=== PATIENT | female | born 1995 | race Caucasian/White ===

== ENCOUNTER 2019-12-11 12:18 | Emergency (ER) | payer MEDICAID ==
[2019-12-11 12:35] VITALS: BP 105/96; PULSE 87
--- NOTE | 2019-12-11 13:16 | EDM.PDOC ---
ED HPI GENERAL MEDICAL PROBLEM - General Chief Complaint: Abdominal Pain Stated Complaint: BACK PAIN SWOLLEN STOMACH Time Seen by Provider: 12/11/19 13:16 Source of Information: Reports: Patient, RN, RN Notes Reviewed History Limitations: Reports: No Limitations - History of Present Illness INITIAL COMMENTS - FREE TEXT/NARRATIVE: Patient presents to ER with complaint of abdominal pain that wraps around into the back. Patient states this began about 2-3 o'clock yesterday. Patient states she has some nausea from time to time. States the pain is sharp in nature, rates the pain 8/10. Patient denies any frequency, urgency burning with urination. States menstrual cycle is not regular as she has an IUD. Admits to still having her appendix and gallbladder. Last ate yesterday and had a hamburger. Patient denies fever chills, denies diarrhea. States last bowel movement was 2 days ago and was normal for her. Patient states when she gets up to walk she does have some numbness and tingling and sharp pain to the left buttock and down the leg as well. Patient denies any recent injury or lifting heavy objects. States she is unable to lift her son right now due to the pain. 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 ED EXAM, GI/ABD - Physical Exam Exam: See Below Exam Limited By: No Limitations General Appearance: Alert, WD/WN, Moderate Distress Eyes: Bilateral: Normal Appearance, EOMI Ears: Normal External Exam, Hearing Grossly Normal Nose: Normal Inspection Throat/Mouth: Normal Inspection, Normal Voice, No Airway Compromise Head: Atraumatic, Normocephalic Neck: Normal Inspection, Supple, Non-Tender, Full Range of Motion Respiratory/Chest: No Respiratory Distress, Lungs Clear, Normal Breath Sounds, No Accessory Muscle Use, Chest Non-Tender Cardiovascular: Normal Peripheral Pulses, Regular Rate, Rhythm, No Edema, No Gallop, No JVD, No Murmur, No Rub GI/Abdominal Exam: Normal Bowel Sounds, Soft, Tender (diffuse) (Female) Exam: Deferred Rectal (Female) Exam: Deferred Back Exam: Normal Inspection, Decreased Range of Motion, Paraspinal Tenderness (left), Vertebral Tenderness (lumbar) Extremities: Normal Inspection, Non-Tender, No Pedal Edema, Normal Capillary Refill, Limited Range of Motion Neurological: Alert, Oriented, CN II-XII Intact, Normal Cognition, Normal Reflexes, No Motor/Sensory Deficits Psychiatric: Normal Affect, Normal Mood Skin Exam: Warm, Dry, Intact, Normal Color, No Rash Lymphatic: No Adenopathy Course - Vital Signs Last Recorded V/S: Last Vital Signs Temp 98 F 12/11/19 12:30 Pulse 87 12/11/19 12:30 Resp 18 12/11/19 12:30 BP 105/96 H 12/11/19 12:30 Pulse Ox 98 12/11/19 12:30 - Orders/Labs/Meds Orders: Active Orders 24 hr Category Date Time Status CULTURE URINE [RM] Stat Lab 12/11/19 13:25 Received Labs: Laboratory Tests 12/11/19 12/11/19 12/11/19 Range/Units 13:25 13:25 13:52 WBC 8.8 (5.0-10.0) 10^3/uL RBC 4.34 (4.2-5.4) 10^6/uL Hgb 13.4 D (12.0-16.0) g/dL Hct 40.4 (37.0-47.0) % MCV 93.1 D (80-100) fL MCH 30.9 (27.0-34.0) pg MCHC 33.2 (33.0-35.0) g/dL Plt Count 193 (150-450) 10^3/uL Neut % (Auto) 59.6 (42.2-75.2) % Lymph % (Auto) 28.3 (20.5-50.1) % [place] % (Auto) 6.4 (2-8) % Eos % (Auto) 5.5 H (1.0-3.0) % Baso % (Auto) 0.2 (0.0-1.0) % Sodium (136-145) mmol/L Potassium (3.5-5.1) mmol/L Chloride (98-107) mmol/L Carbon Dioxide (21-32) mmol/L Anion Gap (7-13) mEq/L BUN (7-18) mg/dL Creatinine (0.55-1.02) mg/dL Est Cr Clr Drug Dosing mL/min Estimated GFR (MDRD) BUN/Creatinine Ratio (No establ ref range) Glucose (74-99) mg/dL Calcium (8.5-10.1) mg/dL Total Bilirubin (0.2-1.0) mg/dL AST (15-37) U/L ALT (14-59) U/L Alkaline Phosphatase (46-116) U/L Total Protein (6.4-8.2) g/dL Albumin (3.4-5.0) g/dL Globulin Albumin/Globulin Ratio Amylase (25-115) U/L Lipase (73-393) U/L Urine Color Dark yellow (YELLOW) Urine Appearance Cloudy (CLEAR) Urine pH 7.5 (5.0-9.0) Ur Specific [place] 1.025 (1.005-1.030) Urine Protein 30 H (NEGATIVE) Urine Glucose (UA) Negative (NEGATIVE) Urine Ketones Trace H (NEGATIVE) Urine Occult Blood Trace-lysed H (NEGATIVE) Urine Nitrite Negative (NEGATIVE) Urine Bilirubin Negative (NEGATIVE) Urine Urobilinogen 2.0 H (0.2-1.0) mg/dL Ur Leukocyte Esterase Large H (NEGATIVE) Urine RBC 10-20 H /HPF Urine WBC Semi-packed H (0-5/HPF) /HPF Ur Epithelial Cells Moderate H (NOT SEEN) /HPF Urine Bacteria Many H (0-FEW/HPF) /HPF Urine HCG, Qual Negative 07/26/20 Range/Units 13:52 WBC (5.0-10.0) 10^3/uL RBC (4.2-5.4) 10^6/uL Hgb (12.0-16.0) g/dL Hct (37.0-47.0) % MCV (80-100) fL MCH (27.0-34.0) pg MCHC (33.0-35.0) g/dL Plt Count (150-450) 10^3/uL Neut % (Auto) (42.2-75.2) % Lymph % (Auto) (20.5-50.1) % [place] % (Auto) (2-8) % Eos % (Auto) (1.0-3.0) % Baso % (Auto) (0.0-1.0) % Sodium 138 (136-145) mmol/L Potassium 3.7 (3.5-5.1) mmol/L Chloride 101 (98-107) mmol/L Carbon Dioxide 29 (21-32) mmol/L Anion Gap 11.7 (7-13) mEq/L BUN 12 (7-18) mg/dL Creatinine 0.99 (0.55-1.02) mg/dL Est Cr Clr Drug Dosing 69.90 mL/min Estimated GFR (MDRD) > 60 BUN/Creatinine Ratio 12.1 (No establ ref range) Glucose 89 (74-99) mg/dL Calcium 8.2 L (8.5-10.1) mg/dL Total Bilirubin 0.7 (0.2-1.0) mg/dL AST 17 (15-37) U/L ALT 25 (14-59) U/L Alkaline Phosphatase 72 (46-116) U/L Total Protein 7.7 (6.4-8.2) g/dL Albumin 3.6 (3.4-5.0) g/dL Globulin 4.1 Albumin/Globulin Ratio 0.9 Amylase 37 (25-115) U/L Lipase 120 (73-393) U/L Urine Color (YELLOW) Urine Appearance (CLEAR) Urine pH (5.0-9.0) Ur Specific [place] (1.005-1.030) Urine Protein (NEGATIVE) Urine Glucose (UA) (NEGATIVE) Urine Ketones (NEGATIVE) Urine Occult Blood (NEGATIVE) Urine Nitrite (NEGATIVE) Urine Bilirubin (NEGATIVE) Urine Urobilinogen (0.2-1.0) mg/dL Ur Leukocyte Esterase (NEGATIVE) Urine RBC /HPF Urine WBC (0-5/HPF) /HPF Ur Epithelial Cells (NOT SEEN) /HPF Urine Bacteria (0-FEW/HPF) /HPF Urine HCG, Qual Departure - Departure Time of Disposition: 14:26 Disposition: Home, Self-Care 01 Condition: Fair Clinical Impression: UTI (urinary tract infection) Qualifiers: Urinary tract infection type: acute cystitis Hematuria presence: without hematuria Qualified Code(s): N30.00 - Acute cystitis without hematuria Low back pain Qualifiers: Chronicity: acute Back pain laterality: left Sciatica presence: with sciatica Sciatica laterality: sciatica of left side Qualified Code(s): M54.42 - Lumbago with sciatica, left side - Discharge Information *PRESCRIPTION DRUG MONITORING PROGRAM REVIEWED*: No *COPY OF PRESCRIPTION DRUG MONITORING REPORT IN PATIENT LAUREN: No Instructions: Abdominal Pain, Adult, [id number], Antibiotic Medicine, Adult, [id number], Back Injury Prevention, [id number], Urinary Tract Infection, Ad ult, [id number], Back Exercises, [id number] Forms: ED Department Discharge Additional Instructions: Rx Macrobid Drink plenty of water Alternate heat and ice to the lower back Rest May use Tylenol and/or ibuprofen as directed for pain Follow-up with your primary care provider in the clinic if no improvement Sepsis Event Note (ED) - Evaluation Sepsis Screening Result: No Definite Risk - Focused Exam Vital Signs: Vital Signs Temp Pulse Resp BP Pulse Ox 12/11/19 12:30 98 F 87 18 105/96 H 98 - My Orders Last 24 Hours: My Active Orders 12/11/19 13:25 CULTURE URINE [RM] Stat - Assessment/Plan Last 24 Hours: My Active Orders 12/11/19 13:25 CULTURE URINE [RM] Stat
[2019-12-11 14:22] LABS: ANION GAP 11.7 mEq/L (7-13); CHLORIDE,CL 101 mmol/L (98-107); SODIUM,NA 138 mmol/L (136-145)
== END 2019-12-11 14:33 | disposition home or self-care (01) ==
LOC: DL.ED 12:18
DX: N30.00 Acute cystitis without hematuria (principal); M54.42 Lumbago with sciatica, left side; F41.9 Anxiety disorder, unspecified; F32.9 Major depressive disorder, single episode, unspecified; Z79.899 Other long term (current) drug therapy
CPT/HCPCS: 36415; 80053; 81001; 81025; 82150; 83690; 85025; 87086; 87088; 87186; 99283; 99284

== ENCOUNTER 2021-04-05 23:28 | Emergency (ER) | payer MEDICARE, MEDICAID ==
[2021-04-05] MEDS ORDERED: Codeine/guaiFENesin 10-100 MG/5 ML Syrup 5 ML Cup PO ONE (23:29)
--- NOTE | 2021-04-06 00:11 | EDM.PDOC ---
ED HPI GENERAL MEDICAL PROBLEM - General Chief Complaint: Respiratory Problem Stated Complaint: THROAT HURTS, SINUS CONGESTION, NEG COVID TEST Time Seen by Provider: 04/06/21 00:06 Source of Information: Reports: Patient History Limitations: Reports: No Limitations - History of Present Illness INITIAL COMMENTS - FREE TEXT/NARRATIVE: 25 y/o F c/o cough, chills, nasal congestion for 1 week. Pt was seen at a facility in [place], [place] and prescribed Levaquin today. Pt reports her symptoms have become to difficult to manage and she has tried tylenol and motrin with no relief. Pt does not want a ig workup but more so something to manage her symptoms. Denies fever, cp, abd pn, ext pain, , drugs, etoh. 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: Psychiatric History: Reports: Anxiety, Depression Hematologic History: Reports: Anemia - Past Surgical History HEENT Surgical History: Reports: Myringotomy w Tube(s), Oral Surgery Other HEENT Surgeries/Procedures: pharnoplasty Musculoskeletal Surgical History: Reports: Carpal Tunnel Other Musculoskeletal Surgeries/Procedures:: pilonidal cyst Social & Family History - Family History Family Medical History: No Pertinent Family History - Tobacco Use Tobacco Use Status *Q: Never Tobacco User - Caffeine Use Caffeine Use: Reports: None - Recreational Drug Use Recreational Drug Use: No ED ROS GENERAL - Review of Systems Review Of Systems: Comprehensive ROS is negative, except as noted in HPI. ED EXAM, GENERAL - Physical Exam Exam: See Below Exam Limited By: No Limitations General Appearance: Alert Eye Exam: Bilateral Eye: PERRL Ears: Normal External Exam, Normal Canal, Hearing Grossly Normal, Normal TMs Nose: Nasal Swelling, Nasal Drainage Throat/Mouth: Normal Inspection, Normal Lips, Normal Teeth, Normal Gums, Normal Oropharynx, Normal Voice, No Airway Compromise Head: Atraumatic, Normocephalic Neck: Supple, Lymphadenopathy (L), Lymphadenopathy (R) (with tender lymph nodes bilaterally) Respiratory/Chest: No Respiratory Distress, Lungs Clear, Normal Breath Sounds Cardiovascular: Normal Peripheral Pulses, Regular Rate, Rhythm, No Edema, No Gallop, No JVD, No Murmur, No Rub GI/Abdominal: Soft, Non-Tender (Female) Exam: Deferred Rectal (Female) Exam: Deferred Back Exam: Normal Inspection, Full Range of Motion Extremities: Normal Inspection, Normal Range of Motion, Non-Tender, Normal Capillary Refill, No Pedal Edema Neurological: Alert Psychiatric: Normal Affect, Normal Mood Skin Exam: Warm, Dry, Intact Course - Vital Signs Last Recorded V/S: Last Vital Signs Temp 97.9 F 04/05/21 23:54 Pulse 105 H 04/05/21 23:54 Resp 18 04/05/21 23:54 BP 140/89 04/05/21 23:54 Pulse Ox 95 04/05/21 23:54 - Re-Assessments/Exams Free Text/Narrative Re-Assessment/Exam: 04/06/21 00:11 The pt appears to have cold symptoms and does not appear toxic. She does not wish to have labs or an xray but feel like she would benefit from symptom relief. I will provder her with afrin and Robitussin Departure - Departure Time of Disposition: 00:13 Disposition: Home, Self-Care 01 Condition: Good Clinical Impression: URI (upper respiratory infection) Qualifiers: URI type: unspecified viral URI Qualified Code(s): J06.9 - Acute upper respiratory infection, unspecified - Discharge Information *PRESCRIPTION DRUG MONITORING PROGRAM REVIEWED*: Not Applicable *COPY OF PRESCRIPTION DRUG MONITORING REPORT IN PATIENT LAUREN: Not Applicable Instructions: Upper Respiratory Infection, Adult Forms: ED Department Discharge Additional Instructions: RX: Robitussin DM RX: Afrin Use tylenol and motrin for pain as needed. If symptoms do not resolve in 10 days follow up with your primary care facility or return to the ER. Sepsis Event Note (ED) - Evaluation Sepsis Screening Result: No Definite Risk - Focused Exam Vital Signs: Vital Signs Temp Pulse Resp BP Pulse Ox 04/05/21 23:54 97.9 F 105 H 18 140/89 95
[2021-04-06] MEDS ORDERED: Oxymetazoline 0.05% Nasal Spray 30 ML Bottle ONE (00:37)
[2021-04-06] MEDS ORDERED: Codeine/guaiFENesin 10-100 MG/5 ML Syrup 5 ML Cup ONE ×2 (00:42→00:46)
[2021-04-06 00:53] VITALS: BP 140/89; PULSE 105
== END 2021-04-06 00:50 | disposition home or self-care (01) ==
LOC: DL.ED 23:28
DX: J06.9 Acute upper respiratory infection, unspecified (principal)
CPT/HCPCS: 99283; A9270-GY

== ENCOUNTER 2021-08-04 10:45 | Emergency (ER) | payer MEDICARE, MEDICAID ==
[2021-08-04 10:57] VITALS: BP 108/90; PULSE 98
[2021-08-04] MEDS ORDERED: Sodium Chloride 0.9% 1,000 ML IV ONE (11:45)
== END 2021-08-04 12:15 | disposition home or self-care (01) ==
LOC: DL.ED 10:45
DX: L73.9 Follicular disorder, unspecified (principal); E66.9 Obesity, unspecified; Z79.899 Other long term (current) drug therapy; Z68.38 Body mass index [BMI] 38.0-38.9, adult
CPT/HCPCS: 99282

== ENCOUNTER 2024-11-20 13:57 | Emergency (ER) | payer MEDICARE, MEDICAID ==
[2024-11-20] MEDS ORDERED: Sodium Chloride 0.9% 10 ML Syringe FLUSH PRN (14:10)
[2024-11-20] MEDS: Ketorolac 30 MG/ML SDV IVPUSH ONE (14:38)
[2024-11-20] MEDS: Ondansetron 4 MG/2 ML SDV IVPUSH ONE (14:38)
[2024-11-20] MEDS: LORazepam 2 MG/ML SDV IVPUSH ONE ×2 (14:39→15:53)
[2024-11-20 14:40] LABS: BASOPHILS PERCENT AUTO 0.1 % (0.0-1.0); EOSINOPHILS PERCENT AUTO 0.5 % (1.0-3.0); LYMPHOCYTES PERCENT AUTO 14.0 % (20.5-50.1); MONOCYTES PERCENT AUTO 4.9 % (2-8); NEUTROPHILS PERCENT AUTO 80.5 % (42.2-75.2); PLATELET COUNT,PLT 210 10^3/uL (150-450); RED BLOOD CELL COUNT 4.16 10^6/uL (4.2-5.4); WHITE BLOOD CELL COUNT,WBC 8.8 10^3/uL (5.0-10.0)
[2024-11-20 15:08] LABS: BLOOD UREA NITROGEN,BUN 9 mg/dL (7-18); CARBON DIOXIDE,CO2 23 mmol/L (21-32); CHLORIDE,CL 105 mmol/L (98-107); CREATININE 0.94 mg/dL (0.55-1.02); GLUCOSE RANDOM 123 mg/dL (70-99); POTASSIUM,K 3.6 mmol/L (3.5-5.1); SODIUM,NA 141 mmol/L (136-145); TSH ULTRASENSITIVE 0.89 uIU/mL (0.36-3.74)
[2024-11-20 15:09] LABS: ESTIMATED GFR 85 mL/min (>=60)
[2024-11-20] MEDS ORDERED: Ondansetron 4 MG/2 ML SDV IVPUSH ONE (15:38)
[2024-11-20] MEDS: diphenhydrAMINE 50 MG/ML SDV IVPUSH ONE (15:53)
[2024-11-20] MEDS: Take Home: Acetaminophen/HYDROcodone 325-5 MG, 5 Tab Pack PO ONE (18:14)
[2024-11-20] MEDS: Take Home: hydrOXYzine HCl 25 MG Tab, 4 Tab Pack PO ONE (18:14)
== END 2024-11-20 18:20 | disposition home or self-care (01) ==
LOC: MERGE 13:57 → DL.ED 13:57
DX: R51.9 Headache, unspecified (principal); F41.9 Anxiety disorder, unspecified; Z79.890 Hormone replacement therapy; Z79.899 Other long term (current) drug therapy
CPT/HCPCS: 36415; 70450; 80048; 84443; 85025; 93005; 93010; 96374; 96375; 96376; 99283; 99285; A9270; J1200; J1885; J2060; J2405; J2765

== ENCOUNTER 2024-11-25 11:33 | Emergency (ER) | payer MEDICARE, MEDICAID ==
[2024-11-25] MEDS ORDERED: Sodium Chloride 0.9% 10 ML Syringe FLUSH PRN (12:15)
[2024-11-25 12:50] LABS: APPEARANCE,URINE CLEAR (CLEAR); GLUCOSE,URINE NEGATIVE (NEGATIVE); OCCULT BLOOD,URINE NEGATIVE (NEGATIVE)
[2024-11-25 12:53] LABS: AMPHETAMINES,URINE NEGATIVE (NEGATIVE); BARBITURATES,URINE NEGATIVE (NEGATIVE); MDMA (ECSTASY), URINE NEGATIVE (NEGATIVE); METHAMPHETAMINES,URINE NEGATIVE (NEGATIVE); OPIATES,URINE NEGATIVE (NEGATIVE); OXYCODONE,URINE NEGATIVE (NEGATIVE); PHENCYCLIDINE,URINE NEGATIVE (NEGATIVE); TCA,URINE NEGATIVE (NEGATIVE)
[2024-11-25 12:58] LABS: BASOPHILS PERCENT AUTO 0.1 % (0.0-1.0); EOSINOPHILS PERCENT AUTO 0.8 % (1.0-3.0); LYMPHOCYTES PERCENT AUTO 13.9 % (20.5-50.1); MONOCYTES PERCENT AUTO 5.5 % (2-8); NEUTROPHILS PERCENT AUTO 79.7 % (42.2-75.2); PLATELET COUNT,PLT 233 10^3/uL (150-450); RED BLOOD CELL COUNT 4.22 10^6/uL (4.2-5.4); WHITE BLOOD CELL COUNT,WBC 9.2 10^3/uL (5.0-10.0)
[2024-11-25 13:04] LABS: O2 DELIVERY DEVICE ROOM AIR; PH,VENOUS 7.52 (7.31-7.41)
[2024-11-25 13:05] LABS: BASE EXCESS VENOUS 2.1 mmol/l ((-2)-(+3)); BICARBONATE,VENOUS 24 mmol/l (19-25); O2 SATURATION VENOUS 58.7 % (60-80); PCO2 VENOUS 29 mmHg (41-51); PO2 VENOUS 34 mmHg (35-42)
[2024-11-25 13:17] LABS: EPITHELIAL CELLS,URINE OCCASIONAL /HPF (NOT SEEN)
[2024-11-25 13:26] LABS: LACTIC ACID 3.1 mmol/L (0.4-2.0)
[2024-11-25 13:30] LABS: A/G RATIO 0.9; ALANINE AMINOTRANSFERASE,ALT 21 U/L (14-59); ASPARTATE AMNIOTRANSFERASE,AST 17 U/L (15-37); BILIRUBIN TOTAL 0.7 mg/dL (0.2-1.0); BLOOD UREA NITROGEN,BUN 8 mg/dL (7-18); CARBON DIOXIDE,CO2 25 mmol/L (21-32); CHLORIDE,CL 103 mmol/L (98-107); CREATINE KINASE,CK 88 U/L (16-191); CREATININE 0.95 mg/dL (0.55-1.02); GLUCOSE RANDOM 115 mg/dL (70-99); POTASSIUM,K 3.4 mmol/L (3.5-5.1); PROTEIN TOTAL,TP 7.7 g/dL (6.4-8.2); SODIUM,NA 139 mmol/L (136-145); TSH ULTRASENSITIVE 1.19 uIU/mL (0.36-3.74)
[2024-11-25 13:34] LABS: ESTIMATED GFR 84 mL/min (>=60)
[2024-11-25 13:35] LABS: ETHANOL BLOOD MEDICAL < 3 mg/dL (0); INR 1.0 (0.9-1.2); PTT,PARTIAL THROMBOPLSTIN TIME 22.7 SEC (22.0-34.0)
[2024-11-25] MEDS: LORazepam 2 MG/ML SDV IVPUSH ONE (14:28)
[2024-11-25] MEDS: Ketorolac 30 MG/ML SDV IVPUSH ONE (16:20)
[2024-11-29 08:47] LABS: WEST NILE AB, SERUM 0.0 IV (<=0.89)
== END 2024-11-25 18:15 ==
LOC: DL.ED 11:33
DX: E87.3 Alkalosis (principal); E87.20 Acidosis, unspecified; R51.9 Headache, unspecified; Z79.890 Hormone replacement therapy; Z79.899 Other long term (current) drug therapy
CPT/HCPCS: 36415; 70450; 80053; 80143; 80179; 80305; 80307; 81001; 81025; 82140; 82550; 82803; 82947; 83605; 83735; 84443; 85025; 85610; 85730; 86140; 86788; 87040; 96361; 96374; 96375; 99285; A9270; C1758; J1885; J2060; J7030